=== PATIENT | female | born 1990 | race Caucasian/White ===

== ENCOUNTER 2016-07-10 14:37 | Emergency (ER) | payer MEDICAID ==
[2016-07-10 14:44] VITALS: BMI 36.8
[2016-07-10 14:45] VITALS: BP 182/72
--- NOTE | 2016-07-10 15:24 | ED.ABDFE ---
HPI - Time seen Time seen: 15:15 - PCP Primary Care Physician: HELLEN - Complaint Chief Complaint Doctors Comments: here due to pain and has no money for a surgeon. Told her we have no surgeon but can help her pain and check it is not an emergency. Chief Complaint:: PT. C/O RIGHT UPPER QUADRANT PAIN. PT. STATES SHE WAS SEEN IN [facility] LAST NIGHT AND WAS DIAGNOSED WITH GALLSTONES AND WAS SENT HOME WITH MEDICATION BUT THE PAIN HAS WORSENED. - Nurses notes reviewed Nurses Notes Review: Yes - Source History Provided: Patient - Mode of arrival Mode of Arrival: Ambulatory - Timing Onset of Chief Complaint: 07/03/16 - Duration Duration: Intermittent Duration: Days (1) - Location Location: RUQ - Severity Severity: Moderate - Quality Quality: Aching - Context Onset: Gradually - Modifying Worsening Factors: Food - Associated signs and symptoms Associated Signs and Symptoms: Nausea - Other History Other History: pain PMH - PMH Past Medical History: No Past Surgical History: Yes Surgical History: Tonsillectomy - Family History History of Family Medical Conditions: Yes Family Medical History: Diabetes Mellitus, Cancer, [place], Hypertension - Social History Does patient currently use any type of tobacco product: No Have you used tobacco products in the last 12 months: No Type of Tobacco Use: None Does any household member use tobacco: No Alcohol Use: Occasionally Do you use any recreational Drugs:: No Lives With: Friend Lives Where: Home - infectious screening In the last 2 months have you had wt loss of >10#?: NO Have you had fever, night sweats or hemotysis?: No Have you traveled outside the country in the last 6 months?: No Isolation: Standard ROS - Review of Systems Constitutional: No Symptoms Reported Eyes: No Symptoms Reported ENTM: No Symptoms Reported Respiratoy: No Symptoms Reported Cardiovascular: No Symptoms Reported Gastrointestinal/Abdominal: Abdominal Pain Genitourinary: No Symptoms Reported Neurological: No Symptoms Reported Musculoskeletal: No Symptoms Reported Integumentary: No Symptoms Reported Hematologic/Lymphatic: No Symptoms Reported Endocrine: No Symptoms Reported Psychiatric: No Symptoms Reported All Other Systems: Reviewed and Negative PE - Vital Signs Vitals: Temperature 97.8 F Pulse Rate 133 Respiratory Rate 20 Blood Pressure [Right Arm] 119/55 Blood Pressure 182/72 O2 Sat by Pulse Oximetry 96 - General Limitations: No Limitations General Appearance: Alert, In No Apparent Distress - Head Head Exam: Normal Inspection - Eyes Eye exam: Normal Appearance, EOMI. negative: Scleral Icterus, Conjunctival Injection - ENT ENT Exam: Normal Exam - Neck Neck Exam: Normal Inspection, Full ROM, Trachea Midline - Respiratory Respiratory Exam: negative: Accessory Muscle Use, Respiratory Distress - Cardiovascular Cardiovascular Exam: Tachycardia - Abdominal Exam Abdominal Exam: Normal Bowel Sounds, Soft, Tenderness. negative: Distention, Guarding Abdominal Tenderness: RUQ - Extremeties Extremities Exam: Normal Inspection, Full ROM, Tenderness - Neurologic Neurological Exam: Alert, Oriented X3, CN II-XII Intact - Psychiatric Psychiatric Exam: Normal Mood - Skin Skin Exam: Intact, Normal Color Course - Treatment Treatment: records fron [place] obtained, CT scan showed gallstone lab test normal. ROR - Labs Reviewed Result Diagrams: 07/10/16 15:25 07/10/16 15:25 Laboratory: WBC 13.7 X10^3/uL (3.6-10.0) H 07/10/16 15:25 RBC 4.93 X10^6/uL (3.5-5.4) 07/10/16 15:25 Hgb 14.8 g/dL (12.0-16.0) 07/10/16 15:25 Hct 43.4 % (36.0-47.0) 07/10/16 15:25 MCV 88.2 fL (80.0-100.0) 07/10/16 15:25 MCH 30.1 pg (27.0-34.0) 07/10/16 15:25 MCHC 34.1 g/dL (33.0-35.0) 07/10/16 15:25 RDW 12.6 % (11.6-16.5) 07/10/16 15:25 Plt Count 342 X10^3/uL (150.0-450.0) 07/10/16 15:25 MPV 6.9 fL (7.4-11.0) L 07/10/16 15:25 Neut % 72.2 % (42.0-75.0) 07/10/16 15:25 Lymph % 19.5 % (21.0-51.0) L 07/10/16 15:25 [place] % 7.0 % (0.0-13.0) 07/10/16 15:25 Eos % 0.8 % (0.9-2.9) L 07/10/16 15:25 Baso % 0.5 % (0.2-1.0) 07/10/16 15:25 Neut # 9.9 x10^3/uL (2.2-4.8) H 07/10/16 15:25 Lymph # 2.7 X10^3/uL (1.3-2.9) 07/10/16 15:25 [place] # 1.0 x10^3/uL (0.3-0.8) H 07/10/16 15:25 Eos # 0.1 x10^3/uL (0.0-0.2) 07/10/16 15:25 Baso # 0.1 X10^3/uL (0.0-0.1) 07/10/16 15:25 Absolute Nucleated RBC 0.0 /100WBC 07/10/16 15:25 Sodium 138 mmol/L (136-145) 07/10/16 15:25 Corrected Sodium 138 mmol/L (136-145) 07/10/16 15:25 Potassium 3.5 mmol/L (3.5-5.1) 07/10/16 15:25 Chloride 101 mmol/L (98-107) 07/10/16 15:25 Carbon Dioxide 26.2 mmol/L (21-32) 07/10/16 15:25 BUN 9 mg/dL (7-18) 07/10/16 15:25 Creatinine 0.99 mg/dL (0.55-1.02) 07/10/16 15:25 Est GFR (MDRD) Af Amer > 60 (>60) 07/10/16 15:25 Est GFR (MDRD) Non-Af > 60 (>60) 07/10/16 15:25 Glucose 113 mg/dL (65-99) H 07/10/16 15:25 Calcium 9.6 mg/dL (8.5-10.1) 07/10/16 15:25 Corrected Calcium TNP 07/10/16 15:25 Total Bilirubin 0.80 mg/dL (0.2-1.0) 07/10/16 15:25 AST 13 Units/L (15-37) L 07/10/16 15:25 ALT 26 Units/L (12-78) 07/10/16 15:25 Alkaline Phosphatase 76 Units/L (46-116) 07/10/16 15:25 Total Protein 8.5 g/dL (6.4-8.2) H 07/10/16 15:25 Albumin 4.1 g/dL (3.4-5.0) 07/10/16 15:25 Globulin 4.4 g/dL (2.5-4.5) 07/10/16 15:25 Albumin/Globulin Ratio 0.9 Ratio (1.1-2.1) L 07/10/16 15:25 Urine Opiates Screen Negative (NEG=<300) 07/10/16 16:18 Urine Methadone Screen Negative (NEG=<300) 07/10/16 16:18 Ur Barbiturates Screen Negative (NEG=<200) 07/10/16 16:18 Ur Phencyclidine Scrn Negative (NEG=<25) 07/10/16 16:18 Ur Amphetamines Screen Negative (NEG=<1000) 07/10/16 16:18 U Benzodiazepines Scrn Negative (NEG=<200) 07/10/16 16:18 Urine Cocaine Screen Negative (NEG=<300) 07/10/16 16:18 U Marijuana (THC) Screen Positive (NEG=<50) A 07/10/16 16:18 - Diagnosis Discharge Problem: Abdominal pain, right lower quadrant - Discharge Plan Condition: Stable Prescriptions: Tramadol HCl [Ultram ER] 300 mg PO TID #21 tab - Follow ups/Referrals Follow ups/Referrals: RUSTY MACEDO [Primary Care Provider] - 3 days - Instructions
[2016-07-10 15:44] LABS: BASOPHILS # (AUTO) 0.1 X10^3/uL (0.0-0.1); BASOPHILS % (AUTO) 0.5 % (0.2-1.0); EOSINOPHILS # (AUTO) 0.1 x10^3/uL (0.0-0.2); EOSINOPHILS % (AUTO) 0.8 % (0.9-2.9); HEMATOCRIT 43.4 % (36.0-47.0); HEMOGLOBIN 14.8 g/dL (12.0-16.0); LYMPHOCYTES # (AUTO) 2.7 X10^3/uL (1.3-2.9); LYMPHOCYTES % (AUTO) 19.5 % (21.0-51.0); MEAN CORPUSCULAR HEMOGLOBIN 30.1 pg (27.0-34.0); MEAN CORPUSCULAR HGB CONC 34.1 g/dL (33.0-35.0); MEAN CORPUSCULAR VOLUME 88.2 fL (80.0-100.0); MEAN PLATELET VOLUME 6.9 fL (7.4-11.0); NEUTROPHILS # (AUTO) 9.9 x10^3/uL (2.2-4.8); NEUTROPHILS % (AUTO) 72.2 % (42.0-75.0); PLATELET COUNT 342 X10^3/uL (150.0-450.0); RED BLOOD COUNT 4.93 X10^6/uL (3.5-5.4); RED CELL DISTRIBUTION WIDTH 12.6 % (11.6-16.5); WHITE BLOOD COUNT 13.7 X10^3/uL (3.6-10.0)
[2016-07-10 15:50] LABS: ALANINE AMINOTRANSFERASE 26 Units/L (12-78); ALBUMIN 4.1 g/dL (3.4-5.0); ALKALINE PHOSPHATASE 76 Units/L (46-116); ASPARTATE AMINO TRANSFERASE 13 Units/L (15-37); BLOOD UREA NITROGEN 9 mg/dL (7-18); CALCIUM 9.6 mg/dL (8.5-10.1); CARBON DIOXIDE 26.2 mmol/L (21-32); CHLORIDE 101 mmol/L (98-107); COR NA(FOR HYPERGLY) 138 mmol/L (136-145); CREATININE 0.99 mg/dL (0.55-1.02); GLUCOSE 113 mg/dL (65-99); SODIUM 138 mmol/L (136-145); TOTAL PROTEIN 8.5 g/dL (6.4-8.2); eGFR BLACK RACES > 60 (>60); eGFR NON BLACK RACES > 60 (>60)
[2016-07-10] MEDS ORDERED: TORADOL 60 MG VIAL IM ONE (16:14)
[2016-07-10] MEDS ORDERED: TORADOL 60 MG VIAL ONE (16:21)
== END 2016-07-10 17:05 | disposition short-term general hospital (02) ==
LOC: ER 14:48
DX: R10.11 Right upper quadrant pain (principal)
CPT/HCPCS: 36415; 80053; 80307; 85025; 96372; 99282; 99283; G0434; J1885